=== PATIENT | male | born 1980 | race Caucasian/White ===

== ENCOUNTER 2018-07-30 13:48 | Inpatient (IN) | payer MEDICAID ==
[2018-07-30 14:26] LABS: URINE SOURCE CLEAN C
[2018-07-30 14:30] LABS: URINE BILIRUBIN NEGATIVE (NEGATIVE); URINE BLOOD NEGATIVE (NEGATIVE); URINE GLUCOSE (UA) NEGATIVE (NEGATIVE); URINE KETONE NEGATIVE (NEGATIVE); URINE LEUKOCYTE ESTERASE NEGATIVE (NEGATIVE); URINE MICROSCOPIC INDICATED? YES; URINE NITRATE NEGATIVE (NEGATIVE); URINE PROTEIN TRACE mg/dL (NEGATIVE); URINE UROBILINOGEN 0.2 E.U./dL (0.2 - 1.0)
[2018-07-30 14:46] LABS: URINE CLARITY CLEAR (CLEAR); URINE COLOR YELLOW
[2018-07-30 14:47] LABS: URINE BACTERIA FEW /hpf (NONE SEEN); URINE EPITHELIAL CELLS NONE SEEN /lpf (FEW); URINE RBC 0-2 /hpf (0-5); URINE WBC 0-2 /hpf (0-5)
--- NOTE | 2018-07-30 14:47 | ED Physician Chart ---
ED Chief Complaint/HPI - Patient Information Date Seen:: 07/30/18 Time Seen:: 14:42 Chief Complaint:: lower abd pains History of Present Illness:: lower abd pain dysuria constipation for 2 days no vomiting or diarhea Allergies:: Allergies Allergy/AdvReac Type Severity Reaction Status Date / Time No Known Allergies Allergy Verified 07/30/18 14:12 Vitals:: Vital Signs - 8 hr 07/30/18 14:12 Temp 98.7 F HR 94 RR 16 BP 148/64 O2 Sat % 97 ED Review of Systems - Review of Systems General/Constitutional: No fever, No chills, No weight loss, No weakness, No diaphoresis, No edema, No loss of appetite Skin: No skin lesions, No rash, No bruising Head: No headache, No light-headedness Eyes: No loss of vision, No pain, No diplopia ENT: No earache, No nasal drainage, No sore throat, No tinnitus Neck: No neck pain, No swelling, No thyromegaly, No stiffness, No mass noted Cardio Vascular: No chest pain, No palpitations, No PND, No orthopnea, No edema Pulmonary: No SOB, No cough, No sputum, No wheezing GI: Pain G/U: No dysuria, No frequency, No hematuria Musculoskeletal: No bone or joint pain, No back pain, No muscle pain Endocrine: No polyuria, No polydipsia Psychiatric: No prior psych history, No depression, No anxiety, No suicidal ideation Hematopoietic: No bruising, No lymphadenopathy Allergic/Immuno: No urticaria, No angioedema Neurological: No syncope, No focal symptoms, No weakness, No paresthesia, No headache, No seizure, No dizziness, No confusion, No vertigo Family Medical History - Family Member Father Living Status: Still Living Hx Family Diabetes: Yes ED Physical Exam - Physical Examination General/Constitutional: Awake, Well-developed, well-nourished, Alert, No distress, GCS 15, Non-toxic appearing, Ambulatory Head: Atraumatic Eyes: Lids, conjuctiva normal, PERRL, EOMI Skin: Nl inspection, No rash, No skin lesions, No ecchymosis, Well hydrated, No lymphadenopathy ENMT: External ears, nose nl, Nasal exam nl, Lips, teeth, gums nl Neck: Nontender, Full ROM w/o pain, No JVD, No nuchal rigidity, No bruit, No mass, No stridor Respiratory: Nl effort/Exclusion, Clear to Auscultation, No Wheeze/Rhonchi/Rales Cardio Vascular: RRR, No murmur, gallop, rubs, NL S1 S2 GI: No tenderness/rebounding/guarding, No organomegaly, No hernia, Normal BS's, Nondistended, No mass/bruits, No McBurney tenderness Other GI comments:: lower abd tenderness : No CVA tenderness Extremities: No tenderness or effusion, Full ROM, normal strength in all extremities, No edema, Normal digits & nails Neuro/Psych: Alert/oriented, DTR's symmetric, Normal sensory exam, Normal motor strength, Judgement/insight normal, Mood normal, Normal gait, No focal deficits Misc: Normal back, No paraspinal tenderness ED Assessment - Assessment General Assessment: lower abd pains ED Septic Shock - . Is Septic Shock (SBP<90, OR Lactate>4 mmol\L) present?: No - <6hrs of presentation: Vital Signs: Vital Signs - 8 hr 07/30/18 14:12 Temp 98.7 F HR 94 RR 16 BP 148/64 O2 Sat % 97 ED Reassessment (Disposition) - Reassessment Reassessment:: abd pain - Diagnosis Diagnosis:: abd pain - Patient Disposition Discharge/Transfer:: Home Condition at Disposition:: Stable
[2018-07-30 15:01] LABS: AMPHETAMINE URINE NEGATIVE (NEGATIVE); BARBITURATES URINE NEGATIVE (NEGATIVE); BENZODIAZEPINES QUAL URINE NEGATIVE (NEGATIVE); CANNABINOID THC POSITIVE (NEGATIVE); COCAINE METABOLITE QUAL URINE NEGATIVE (NEGATIVE); METHADONE URINE NEGATIVE (NEGATIVE); METHAMPHETAMINES QUAL URINE NEGATIVE (NEGATIVE); OPIATES (MORPHINE) QUAL. URINE NEGATIVE (NEGATIVE); PHENCYCLIDINE (PCP) URINE NEGATIVE (NEGATIVE); TRICYCLICS (TCA) QUAL. URINE NEGATIVE (NEGATIVE)
[2018-07-30 15:10] LABS: ALB/GLOB RATIO 1.3 (1.0-1.8); ALBUMIN 4.4 gm/dL (4.2-5.5); ALKALINE PHOSPHATASE 71 U/L (34-104); ANION GAP 12.6 (7.0-16.0); BILIRUBIN,TOTAL 1.1 mg/dL (0.3-1.0); BUN - UREA NITROGEN 11 mg/dL (7-25); CALCIUM SERUM 9.7 mg/dL (8.6-10.3); CARBON DIOXIDE 27.1 mEq/L (21.0-31.0); CHLORIDE 100 mEq/L (98-107); CREATININE - SERUM 0.9 mg/dL (0.7-1.3); GFR AFRICAN-AMERICAN > 60.0 ml/min (>90); GFR NON AFRICAN-AMERICAN > 60.0 ml/min; GLUCOSE 113 mg/dL (70-105); POTASSIUM SERUM 3.7 mEq/L (3.5-5.1); SGOT 11 U/L (13-39); SGPT/ALT 26 U/L (7-52); SODIUM SERUM 136 mEq/L (136-145); TOTAL PROTEIN,SERUM 7.8 gm/dL (6.0-8.3)
[2018-07-30] MEDS ORDERED: Piperacillin Sodium/Tazobact 3.375 gm Vial IV ONE (16:26)
[2018-07-30 17:22] LABS: HEMATOCRIT 45.8 % (41.0-60); HEMOGLOBIN 15.6 gm/dL (12-16); MEAN CELL VOLUME 88.2 fl (80-99); RED BLOOD COUNT 5.19 Mil/cmm (4.30-5.70)
[2018-07-30 17:23] LABS: MEAN PLATELET VOLUME 9.3 fl; PLATELET COUNT 250 Th/cmm (150-400); RED CELL DISTRIBUTION WIDTH 13.5 % (11.5-20.0)
[2018-07-30 17:44] LABS: BAND NEUTROPHILE 0 % (0-10); BASOPHIL 0 % (0-3); EOSINOPHIL 1 % (0-5); LYMPHOCYTE 14 % (20-50); MONOCYTE 8 % (2-10); NEUTROPHILS 77 % (40-80)
[2018-07-30 17:56] LABS: WHITE BLOOD COUNT 14.9 Th/cmm (4.8-10.8)
[2018-07-30] MEDS: Sodium Chloride 0.9% 1,000 ML IV SCH (20:16)
[2018-07-30] MEDS: metroNIDAZOLE 500mg/NS 100mL 500 MG/100 ML BAG IV SCH (20:19)
[2018-07-30 20:34] VITALS: BP 115/77
[2018-07-30] MEDS: Levofloxacin 750mg/150mL 750 MG/150 ML BAG IV SCH (21:47)
[2018-07-31] MEDS: metroNIDAZOLE 500mg/NS 100mL 500 MG/100 ML BAG IV SCH ×3 (04:11→20:00)
[2018-07-31 06:33] LABS: INR 0.94 (0.5-1.4); PROTHROMBIN TIME (TEST) 9.8 SECONDS (9.5-11.5)
[2018-07-31 06:39] LABS: ALB/GLOB RATIO 1.3 (1.0-1.8); ALBUMIN 4.1 gm/dL (4.2-5.5); ALKALINE PHOSPHATASE 62 U/L (34-104); ANION GAP 10.4 (7.0-16.0); BUN - UREA NITROGEN 13 mg/dL (7-25); CALCIUM SERUM 9.1 mg/dL (8.6-10.3); CARBON DIOXIDE 25.3 mEq/L (21.0-31.0); CHLORIDE 101 mEq/L (98-107); CREATININE - SERUM 0.8 mg/dL (0.7-1.3); GFR AFRICAN-AMERICAN > 60.0 ml/min (>90); GFR NON AFRICAN-AMERICAN > 60.0 ml/min; GLUCOSE 110 mg/dL (70-105); POTASSIUM SERUM 3.7 mEq/L (3.5-5.1); SGOT 11 U/L (13-39); SGPT/ALT 21 U/L (7-52); SODIUM SERUM 133 mEq/L (136-145); TOTAL PROTEIN,SERUM 7.2 gm/dL (6.0-8.3)
[2018-07-31] MEDS: Sodium Chloride 0.9% 1,000 ML IV SCH ×2 (09:45→21:52)
--- NOTE | 2018-07-31 09:51 | Diagnostic Imaging Report ---
Exam: CT examination of the abdomen and pelvis HISTORY: Pain lower abdomen Total DLP equals 688 CTDI equals 13.2 Findings: Multiple contiguous thin section the abdomen pelvis obtained from lower thorax to the pubic symphysis without the administration of intravenous or oral material, no prior studies available comparison The study demonstrates normal aeration of the lung parenchyma the bases Liver and spleen intact. The pancreas is normal. The gallbladder is normal. The kidneys demonstrate no evidence of obstructive uropathy or nephrolithiasis. There is evidence for acute diverticulitis in sigmoid colon, question microperforation. Edema of surrounding mesentery is noted. No free fluid is noted. Urinary bladder is intact. Bony structures are normal. IMPRESSION: Diverticulitis sigmoid colon, question of microperforation, edema mesentery.
[2018-07-31 10:58] LABS: WHITE BLOOD COUNT 10.7 Th/cmm (4.8-10.8)
[2018-07-31 10:59] LABS: HEMATOCRIT 43.8 % (41.0-60); HEMOGLOBIN 14.5 gm/dL (12-16)
[2018-07-31 11:00] LABS: % NEUTROPHILS 75.6 % (40.0-80.0); MEAN CELL VOLUME 89.5 fl (80-99); MEAN CORPUSCULAR HEMOGLOBIN 29.6 pg (26.0-30.0); MEAN CORPUSCULAR HGB CONC 33.1 pg (28.0-36.0); MEAN PLATELET VOLUME 9.5 fl; PLATELET COUNT 220 Th/cmm (150-400); RED CELL DISTRIBUTION WIDTH 13.7 % (11.5-20.0)
[2018-07-31 11:01] LABS: % BASOPHILS 0.3 % (0.0-2.0); % EOSINOPHILS 0.9 % (0.0-5.0); % LYMPHOCYTES 15.3 % (20.0-50.0); % MONOCYTES 7.9 % (2.0-10.0); EOSINOPHILE ABSOLUTE 0.1 Th/cmm (0.1-0.4); LYMPHOCYTE ABSOLUTE 1.6 Th/cmm (1.5-3.0); MONOCYTE ABSOLUTE 0.8 Th/cmm (0.3-1.0); NEUTROPHILE ABSOLUTE 8.1 Th/cmm (1.8-8.0)
--- NOTE | 2018-07-31 11:32 | History and Physical ---
History of Present Illness - HPI Chief Complaint: Abdominal pain HPI: Patient refer that he has having lower abdominal pain x 2 days thta increased with evacuation. 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 Hx GI: Report: No Pertinent Hx Psych: Report: No Pertinent Hx Musculoskeletal: Report: No Pertinent Hx Rheumatologic: Report: No pertinent Hx Infectious Disease: Report: No Pertinent Hx Renal/: Report: No Pertinent Hx Endocrine: Report: No Pertinent Hx Dermatology: Report: No Pertinent Hx - Past Surgical History Past Surgical History: No pertinent Hx Family Medical History - Family Member Father Living Status: Still Living Hx Family Diabetes: Yes Social History Smoke: No Alcohol: None Drugs: Marijuana Lives: With Family Domestic Violence: Negative - Medications Home Medications: Home Medication Medication Instructions Recorded Type NK [No Home Meds] 07/30/18 History - Allergies Allergies/Adverse Reactions: Allergies Allergy/AdvReac Type Severity Reaction Status Date / Time No Known Allergies Allergy Verified 07/30/18 14:12 Review of Systems - Review of Systems Constitutional: Report: No Significant Eyes: Report: No Significant ENT: Report: No Significant Respiratory: Report: No Significant Cardiovascular: Report: No Significant Gastrointestinal: Report: Abdominal Pain Genitourinary: Report: No Significant Musculoskeletal: Report: No Significant Skin: Report: No Significant Neurological: Report: No Significant Physical Exam - Physical Exam HEENT: Report: Ears Nose Throat within normal limits Neck: Report: Within normal limits Cardiovascular Systems: Report: Regular, Rate and Rhythm Respiratory: Report: Breath Sounds are within normal limits Abdomen: Report: Tender to palpation Back: Report: Inspection of back is within normal limits. Extremities: Report: Non-tender to palpation. Skin: Report: Color of skin is within normal limits Neuro/Psych: Report: Mood affect is within normal limits - Lab Results All Lab Results last 24 hours: Laboratory Results - last 24 hr 07/30/18 07/30/18 07/30/18 14:15 14:15 14:40 WBC RBC Hgb Hct MCV MCH MCHC Differential RDW Plt Count MPV Add Manual Diff Neutrophils % Band Neutrophils % Lymphocytes % Monocytes % Eosinophils % Basophils % Neutrophils (Manual) Lymphocytes Monocytes Eosinophils Basophils PT INR PTT (Actin FS) Sodium 136 Potassium 3.7 Chloride 100 Carbon Dioxide 27.1 Anion Gap 12.6 BUN 11 Creatinine 0.9 Est GFR ( Amer) > 60.0 Est GFR (Non-Af Amer) > 60.0 BUN/Creatinine Ratio 12.2 Glucose 113 H Calcium 9.7 Total Bilirubin 1.1 H AST 11 L ALT 26 Alkaline Phosphatase 71 Total Protein 7.8 Albumin 4.4 Globulin 3.4 Albumin/Globulin Ratio 1.3 Urine Source CLEAN C Urine Color YELLOW Urine Clarity CLEAR Urine pH 6.0 Ur Specific [place] 1.025 Urine Protein TRACE Urine Glucose (UA) NEGATIVE Urine Ketones NEGATIVE Urine Blood NEGATIVE Urine Nitrate NEGATIVE Urine Bilirubin NEGATIVE Urine Urobilinogen 0.2 Ur Leukocyte Esterase NEGATIVE Urine RBC 0-2 H Urine WBC 0-2 Ur Epithelial Cells NONE SEEN Urine Bacteria FEW Urine Opiates Screen NEGATIVE Urine Methadone Screen NEGATIVE Ur Barbiturates Screen NEGATIVE Ur Tricyclics Screen NEGATIVE Ur Phencyclidine Scrn NEGATIVE Amphetamines Screen NEGATIVE U Methamphetamines Scrn NEGATIVE U Benzodiazepines Scrn NEGATIVE U Cocaine Metab Screen NEGATIVE U Cannabinoids Screen POSITIVE H 07/30/18 07/31/18 07/31/18 14:40 05:43 05:43 WBC 14.9 H 10.7 RBC 5.19 4.90 Hgb 15.6 14.5 Hct 45.8 43.8 MCV 88.2 89.5 MCH 30.0 29.6 MCHC Differential 34.0 33.1 RDW 13.5 13.7 Plt Count 250 220 MPV 9.3 9.5 Add Manual Diff YES Neutrophils % 75.6 Band Neutrophils % 0 Lymphocytes % 15.3 L Monocytes % 7.9 Eosinophils % 0.9 Basophils % 0.3 Neutrophils (Manual) 77 Lymphocytes 14 L Monocytes 8 Eosinophils 1 Basophils 0 PT 9.8 INR 0.94 PTT (Actin FS) 28.9 Sodium Potassium Chloride Carbon Dioxide Anion Gap BUN Creatinine Est GFR ( Amer) Est GFR (Non-Af Amer) BUN/Creatinine Ratio Glucose Calcium Total Bilirubin AST ALT Alkaline Phosphatase Total Protein Albumin Globulin Albumin/Globulin Ratio Urine Source Urine Color Urine Clarity Urine pH Ur Specific [place] Urine Protein Urine Glucose (UA) Urine Ketones Urine Blood Urine Nitrate Urine Bilirubin Urine Urobilinogen Ur Leukocyte Esterase Urine RBC Urine WBC Ur Epithelial Cells Urine Bacteria Urine Opiates Screen Urine Methadone Screen Ur Barbiturates Screen Ur Tricyclics Screen Ur Phencyclidine Scrn Amphetamines Screen U Methamphetamines Scrn U Benzodiazepines Scrn U Cocaine Metab Screen U Cannabinoids Screen 07/31/18 05:43 WBC RBC Hgb Hct MCV MCH MCHC Differential RDW Plt Count MPV Add Manual Diff Neutrophils % Band Neutrophils % Lymphocytes % Monocytes % Eosinophils % Basophils % Neutrophils (Manual) Lymphocytes Monocytes Eosinophils Basophils PT INR PTT (Actin FS) Sodium 133 L Potassium 3.7 Chloride 101 Carbon Dioxide 25.3 Anion Gap 10.4 BUN 13 Creatinine 0.8 Est GFR ( Amer) > 60.0 Est GFR (Non-Af Amer) > 60.0 BUN/Creatinine Ratio 16.3 Glucose 110 H Calcium 9.1 Total Bilirubin 1.0 AST 11 L ALT 21 Alkaline Phosphatase 62 Total Protein 7.2 Albumin 4.1 L Globulin 3.1 Albumin/Globulin Ratio 1.3 Urine Source Urine Color Urine Clarity Urine pH Ur Specific [place] Urine Protein Urine Glucose (UA) Urine Ketones Urine Blood Urine Nitrate Urine Bilirubin Urine Urobilinogen Ur Leukocyte Esterase Urine RBC Urine WBC Ur Epithelial Cells Urine Bacteria Urine Opiates Screen Urine Methadone Screen Ur Barbiturates Screen Ur Tricyclics Screen Ur Phencyclidine Scrn Amphetamines Screen U Methamphetamines Scrn U Benzodiazepines Scrn U Cocaine Metab Screen U Cannabinoids Screen - Assessment Assessment: Patient is awake, alert, calm, in no acute distress. Dx; Diverticulitis with microperforation. - Plan Plan: Patient is in IV NS, IV AB, NPO, pain control. Consult with GI requested. Will continue to monitor.
--- NOTE | 2018-07-31 20:23 | Consultation ---
DATE OF CONSULTATION: 07/31/2018 GASTROENTEROLOGY CONSULTATION REQUESTING PHYSICIAN: Baljit Perez MD REASON FOR CONSULTATION: Lower abdominal pain. HISTORY OF PRESENT ILLNESS: A 38-year-old male, otherwise healthy, with mild obesity, admitted for 2-day history of lower abdominal pain, left greater than right side. The pain worsened with urination and defecation. He also had some tactile fevers and chills on day 1 of symptoms. He denied nausea or vomiting. He has never had symptoms like this before. Imaging here suggested acute diverticulitis of the sigmoid colon. He was kept n.p.o. and started on IV antibiotics. His pain now has resolved. He denies GI bleeding. He is a nonsmoker and nondrinker. MEDICATIONS: None at home. Here include Toradol p.r.n., Levaquin, Flagyl, and IV fluids. ALLERGIES: No known drug allergies. SOCIAL HISTORY: No recent tobacco, alcohol, or drugs. FAMILY HISTORY: Noncontributory. REVIEW OF SYSTEMS: A comprehensive 12-point review of system was conducted and is only positive for those signs and symptoms present in history of present illness. PHYSICAL EXAMINATION: VITAL SIGNS: Temperature of 97.0, blood pressure is 112/71, pulse of 71, respirations 18, O2 sat is 98% on room air. GENERAL: The patient is well-developed, well-nourished male who is in no acute distress. HEENT: Sclerae nonicteric. Oropharynx is clear. CARDIOVASCULAR: Regular rate and rhythm. LUNGS: Clear to auscultation bilaterally. ABDOMEN: Soft, nontender, nondistended. Obese habitus. EXTREMITIES: No clubbing, cyanosis, or edema. RECTAL: Deferred. LABORATORY DATA AND IMAGING: Initial WBC 14.9 down to 10.7 now, hemoglobin 14.5, and platelet count 220. INR is normal. Sodium 133 and creatinine 0.8. Liver labs are normal. Albumin 4.1. Urinalysis essentially clear. Urine toxicology screen positive for cannabis. CT of the abdomen and pelvis done in the ER without contrast showed diverticulitis of sigmoid colon with question of microperforation and edema of the mesentery. IMPRESSION: 1. Abdominal pain secondary to acute sigmoid diverticulitis, new onset. 2. Leukocytosis, now improved. 3. Abdominal pain likely from #1. 4. Mild obesity. RECOMMENDATIONS: 1. There are no current peritoneal signs and therefore prolonged n.p.o. was not needed. We will challenge with a full liquid diet for now and advance diet as tolerated. Avoid seeds and nuts and smoking and NSAIDs in the future. 2. IV antibiotics to be continued here and to be transitioned to oral form on discharge. 3. Pain control measures as needed. 4. Disposition as per hospitalist. The patient may be discharged home tomorrow if he feels well on a full liquid diet and pain is minimal or controlled. 5. The patient will need outpatient GI clinic followup in 2-3 weeks' time to arrange for a colonoscopy to occur in the next 6-8 weeks to rule out concomitant colon cancer or polyps and to document healing of the above changes. This can be done as an outpatient. Thank you, Dr. Baljit Perez for involving us in the care of your patient. If you have any further questions, please call us. JOB# [id number]
[2018-07-31] MEDS: Levofloxacin 750mg/150mL 750 MG/150 ML BAG IV SCH (21:47)
[2018-08-01] MEDS: metroNIDAZOLE 500mg/NS 100mL 500 MG/100 ML BAG IV SCH ×2 (05:00→13:17)
[2018-08-01 05:14] LABS: ALB/GLOB RATIO 1.3 (1.0-1.8); ALBUMIN 4.3 gm/dL (4.2-5.5); ALKALINE PHOSPHATASE 66 U/L (34-104); ANION GAP 12.9 (7.0-16.0); BILIRUBIN,TOTAL 0.7 mg/dL (0.3-1.0); BUN - UREA NITROGEN 11 mg/dL (7-25); CALCIUM SERUM 9.7 mg/dL (8.6-10.3); CARBON DIOXIDE 25.3 mEq/L (21.0-31.0); CHLORIDE 104 mEq/L (98-107); CREATININE - SERUM 0.9 mg/dL (0.7-1.3); GFR AFRICAN-AMERICAN > 60.0 ml/min (>90); GFR NON AFRICAN-AMERICAN > 60.0 ml/min; GLUCOSE 120 mg/dL (70-105); POTASSIUM SERUM 4.2 mEq/L (3.5-5.1); SGOT 14 U/L (13-39); SGPT/ALT 25 U/L (7-52); SODIUM SERUM 138 mEq/L (136-145); TOTAL PROTEIN,SERUM 7.7 gm/dL (6.0-8.3)
--- NOTE | 2018-08-01 08:08 | GI Progress Note ---
Subjective - Review of Systems Service Date: 08/01/18 Subjective: Minimal abd pain, tolerating liquids. GI OBJECTIVE - Results Result Diagrams: 07/31/18 05:43 08/01/18 04:05 Recent Labs: Laboratory Last Values WBC 10.7 Th/cmm (4.8-10.8) 07/31/18 05:43 RBC 4.90 Mil/cmm (4.30-5.70) 07/31/18 05:43 Hgb 14.5 gm/dL (12-16) 07/31/18 05:43 Hct 43.8 % (41.0-60) 07/31/18 05:43 MCV 89.5 fl (80-99) 07/31/18 05:43 MCH 29.6 pg (26.0-30.0) 07/31/18 05:43 MCHC Differential 33.1 pg (28.0-36.0) 07/31/18 05:43 RDW 13.7 % (11.5-20.0) 07/31/18 05:43 Plt Count 220 Th/cmm (150-400) 07/31/18 05:43 MPV 9.5 fl 07/31/18 05:43 Add Manual Diff YES 07/30/18 14:40 Neutrophils % 75.6 % (40.0-80.0) 07/31/18 05:43 Band Neutrophils % 0 % (0-10) 07/30/18 14:40 Lymphocytes % 15.3 % (20.0-50.0) L 07/31/18 05:43 Monocytes % 7.9 % (2.0-10.0) 07/31/18 05:43 Eosinophils % 0.9 % (0.0-5.0) 07/31/18 05:43 Basophils % 0.3 % (0.0-2.0) 07/31/18 05:43 Neutrophils (Manual) 77 % (40-80) 07/30/18 14:40 Lymphocytes 14 % (20-50) L 07/30/18 14:40 Monocytes 8 % (2-10) 07/30/18 14:40 Eosinophils 1 % (0-5) 07/30/18 14:40 Basophils 0 % (0-3) 07/30/18 14:40 PT 9.8 SECONDS (9.5-11.5) 07/31/18 05:43 INR 0.94 (0.5-1.4) 07/31/18 05:43 PTT (Actin FS) 28.9 SECONDS (26.0-38.0) 07/31/18 05:43 Sodium 138 mEq/L (136-145) 08/01/18 04:05 Potassium 4.2 mEq/L (3.5-5.1) 08/01/18 04:05 Chloride 104 mEq/L (98-107) 08/01/18 04:05 Carbon Dioxide 25.3 mEq/L (21.0-31.0) 08/01/18 04:05 Anion Gap 12.9 (7.0-16.0) 08/01/18 04:05 BUN 11 mg/dL (7-25) 08/01/18 04:05 Creatinine 0.9 mg/dL (0.7-1.3) 08/01/18 04:05 Est GFR ( Amer) > 60.0 ml/min (>90) 08/01/18 04:05 Est GFR (Non-Af Amer) > 60.0 ml/min 08/01/18 04:05 BUN/Creatinine Ratio 12.2 08/01/18 04:05 Glucose 120 mg/dL (70-105) H 08/01/18 04:05 Calcium 9.7 mg/dL (8.6-10.3) 08/01/18 04:05 Total Bilirubin 0.7 mg/dL (0.3-1.0) 08/01/18 04:05 AST 14 U/L (13-39) 08/01/18 04:05 ALT 25 U/L (7-52) 08/01/18 04:05 Alkaline Phosphatase 66 U/L (34-104) 08/01/18 04:05 Total Protein 7.7 gm/dL (6.0-8.3) 08/01/18 04:05 Albumin 4.3 gm/dL (4.2-5.5) 08/01/18 04:05 Globulin 3.4 gm/dL 08/01/18 04:05 Albumin/Globulin Ratio 1.3 (1.0-1.8) 08/01/18 04:05 Urine Source CLEAN C 07/30/18 14:15 Urine Color YELLOW 07/30/18 14:15 Urine Clarity CLEAR (CLEAR) 07/30/18 14:15 Urine pH 6.0 (4.6 - 8.0) 07/30/18 14:15 Ur Specific [place] 1.025 (1.005-1.030) 07/30/18 14:15 Urine Protein TRACE mg/dL (NEGATIVE) 07/30/18 14:15 Urine Glucose (UA) NEGATIVE mg/dL (NEGATIVE) 07/30/18 14:15 Urine Ketones NEGATIVE mg/dL (NEGATIVE) 07/30/18 14:15 Urine Blood NEGATIVE (NEGATIVE) 07/30/18 14:15 Urine Nitrate NEGATIVE (NEGATIVE) 07/30/18 14:15 Urine Bilirubin NEGATIVE (NEGATIVE) 07/30/18 14:15 Urine Urobilinogen 0.2 E.U./dL (0.2 - 1.0) 07/30/18 14:15 Ur Leukocyte Esterase NEGATIVE (NEGATIVE) 07/30/18 14:15 Urine RBC 0-2 /hpf (0-5) H 07/30/18 14:15 Urine WBC 0-2 /hpf (0-5) 07/30/18 14:15 Ur Epithelial Cells NONE SEEN /lpf (FEW) 07/30/18 14:15 Urine Bacteria FEW /hpf (NONE SEEN) 07/30/18 14:15 Urine Opiates Screen NEGATIVE (NEGATIVE) 07/30/18 14:15 Urine Methadone Screen NEGATIVE (NEGATIVE) 07/30/18 14:15 Ur Barbiturates Screen NEGATIVE (NEGATIVE) 07/30/18 14:15 Ur Tricyclics Screen NEGATIVE (NEGATIVE) 07/30/18 14:15 Ur Phencyclidine Scrn NEGATIVE (NEGATIVE) 07/30/18 14:15 Amphetamines Screen NEGATIVE (NEGATIVE) 07/30/18 14:15 U Methamphetamines Scrn NEGATIVE (NEGATIVE) 07/30/18 14:15 U Benzodiazepines Scrn NEGATIVE (NEGATIVE) 07/30/18 14:15 U Cocaine Metab Screen NEGATIVE (NEGATIVE) 07/30/18 14:15 U Cannabinoids Screen POSITIVE (NEGATIVE) H 07/30/18 14:15 - Physical Exam Vitals and I&O: Vital Signs Temp 97.8 F 08/01/18 04:00 Pulse 87 08/01/18 04:00 Resp 17 08/01/18 04:00 BP 118/74 08/01/18 04:00 Pulse Ox 99 08/01/18 04:00 Intake & Output 07/31/18 08/01/18 08/01/18 18:59 06:59 18:59 Intake Total 250 1100 Balance 250 1100 Weight (lbs) 99.79 kg Intake: Intake, IV Amount 100 1100 Sodium Chloride 0.9% 1, 1000 000 ml @ 100 mls/hr IV . Q10H [facility] Rx#:[id number] metroNIDAZOLE 500mg/NS 100 100 100mL 500 mg In 100 ml @ 100 mls/hr IV Q8HR [facility] Rx #:[id number] Oral 150 Other: # Voids 3 Weight Source Bedscale Active Medications: Current Medications Levofloxacin (Levaquin Pb) 750 mg in 150 mls @ 100 mls/hr IV Q24HR [facility] Stop: 09/28/18 20:59 Last Admin: 07/31/18 21:47 Dose: 100 mls/hr Metronidazole (Flagyl) 500 mg in 100 mls @ 100 mls/hr IV Q8HR [facility] Stop: 09/28/18 20:59 Last Admin: 08/01/18 05:00 Dose: 100 mls/hr Sodium Chloride (Nacl 0.9%) 1,000 mls @ 100 mls/hr IV .Q10H [facility] Stop: 09/28/18 19:59 Last Admin: 07/31/18 21:52 Dose: 100 mls/hr Ketorolac Tromethamine (Toradol) 30 mg IVP Q6H PRN PRN Reason: Pain (Moderate) Stop: 09/28/18 17:59 Last Admin: 07/30/18 21:53 Dose: 30 mg General: Alert, Oriented x3 HEENT: Atraumatic Neck: Supple Cardiovascular: Regular rate Abdomen: Bowel sounds, Soft, no Tender, no Hepatomegaly, no Splenomegaly, no Distended, no Rebound, no Mass, no Guarding Extremities: no Cyanosis Skin: no Rash Assessment/Plan - Assessment Assessment: 38 yo M presents with uncomplicated diverticulitis. # Diverticulitis, likely uncomplicated Diverticulitis appears to be clinically resolving, and pt tolerating full liquid diet. No evidence of peritoneal signs or ongoing perforation Plan: - full liquids. Slow advancement over the next 2-3 days (can be done at home) - 10 day course of abx - needs outpt GI follow up via PCP referral or insurance approval. Will need colonoscopy in 2 months - avoid NSAIDs - repeat CT with oral and IV contrast only if pain intensifies or clinical status changes
--- NOTE | 2018-08-01 08:50 | Discharge Summary ---
General Discharge Summary - Discharge Summary Date of Admission: 07/30/18 Admitting Diagnosis: Diverticulitis Discharge Date: 08/01/18 Discharge Diagnosis: Diverticulitis Laboratory Findings: Laboratory Results - last 24 hr 07/31/18 08/01/18 05:43 04:05 WBC 10.7 RBC 4.90 Hgb 14.5 Hct 43.8 MCV 89.5 MCH 29.6 MCHC Differential 33.1 RDW 13.7 Plt Count 220 MPV 9.5 Neutrophils % 75.6 Lymphocytes % 15.3 L Monocytes % 7.9 Eosinophils % 0.9 Basophils % 0.3 Sodium 138 Potassium 4.2 Chloride 104 Carbon Dioxide 25.3 Anion Gap 12.9 BUN 11 Creatinine 0.9 Est GFR ( Amer) > 60.0 Est GFR (Non-Af Amer) > 60.0 BUN/Creatinine Ratio 12.2 Glucose 120 H Calcium 9.7 Total Bilirubin 0.7 AST 14 ALT 25 Alkaline Phosphatase 66 Total Protein 7.7 Albumin 4.3 Globulin 3.4 Albumin/Globulin Ratio 1.3 Hospital Course: Patient responded to treatment, abdominal pain decreased. Treatment: Patient was started in IV NS, IV AB, Pain control, and NPO. Later started with liquid diet and advanced. Condition at Discharge: Stable Disposition: PT DISCHARGED HOME Home Medications: Home Medication Medication Instructions Recorded Type NK [No Home Meds] 07/30/18 History Inpatient Medications: Current Medications Levofloxacin (Levaquin Pb) 750 mg in 150 mls @ 100 mls/hr IV Q24HR [facility] [place] Stop: 09/28/18 20:59 Last Admin: 07/31/18 21:47 Dose: 100 mls/hr Metronidazole (Flagyl) 500 mg in 100 mls @ 100 mls/hr IV Q8HR [facility] [place] Stop: 09/28/18 20:59 Last Admin: 08/01/18 05:00 Dose: 100 mls/hr Sodium Chloride (Nacl 0.9%) 1,000 mls @ 100 mls/hr IV .Q10H [facility] [place] Stop: 09/28/18 19:59 Last Admin: 07/31/18 21:52 Dose: 100 mls/hr Ketorolac Tromethamine (Toradol) 30 mg IVP Q6H PRN PRN Reason: Pain (Moderate) Stop: 09/28/18 17:59 Last Admin: 07/30/18 21:53 Dose: 30 mg Activity: As Tolerated Discharge Diet: Regular Consults and Follow-Up: Baljit Perez [Primary Care Provider] - Consulting Speciality: GI, Other (PCP)
[2018-08-01 09:27] LABS: RED BLOOD COUNT 5.13 Mil/cmm (4.30-5.70)
[2018-08-01 09:28] LABS: HEMOGLOBIN 15.5 gm/dL (12-16); MEAN CELL VOLUME 89.8 fl (80-99); MEAN CORPUSCULAR HEMOGLOBIN 30.2 pg (26.0-30.0); MEAN CORPUSCULAR HGB CONC 33.6 pg (28.0-36.0); PLATELET COUNT 283 Th/cmm (150-400); RED CELL DISTRIBUTION WIDTH 13.8 % (11.5-20.0)
[2018-08-01 09:29] LABS: % EOSINOPHILS 1.1 % (0.0-5.0); % LYMPHOCYTES 19.1 % (20.0-50.0); % MONOCYTES 7.5 % (2.0-10.0); % NEUTROPHILS 71.9 % (40.0-80.0); MEAN PLATELET VOLUME 9.4 fl
[2018-08-01 09:30] LABS: % BASOPHILS 0.4 % (0.0-2.0)
== END 2018-08-01 13:10 | disposition home or self-care (01) | DRG 244 ==
LOC: ER 13:48 → MSI 18:03
PROVIDERS: ADMIT General Practice; ATTEND General Practice
DX: K57.20 Diverticulitis of large intestine with perforation and abscess without bleeding (principal); D72.829 Elevated white blood cell count, unspecified; E66.9 Obesity, unspecified; Z68.39 Body mass index [BMI] 39.0-39.9, adult
CPT/HCPCS: 36415-UA; 80053-TC; 80307; 81001-TC; 85007-TC; 85025-TC; 85610-TC; 85730-TC; 90799; 96375; J1885; J1956; J2543; J7030